=== PATIENT | female | born 1995 | race Caucasian/White ===

== ENCOUNTER 2020-08-14 13:09 | Emergency (ER) | payer OTHER ==
[~2020-08-14] VITALS: Ht 167.6 cm; Wt 90.7 kg
[2020-08-14 15:25] VITALS: BP 132/89
== END 2020-08-14 15:39 | disposition home or self-care (01) ==
LOC: M.ERS 13:09
DX: U07.1 COVID-19 (principal); E66.9 Obesity, unspecified; Z68.32 Body mass index [BMI] 32.0-32.9, adult